=== PATIENT | female | born 1995 | race Caucasian/White ===

== ENCOUNTER 2023-08-11 17:00 | Emergency (ER) | payer MEDICAID ==
[~2023-08-11] VITALS: Ht 162.6 cm; Wt 108.9 kg
[2023-08-11 17:29] VITALS: BP 129/88; TEMP 98.4
[2023-08-11] MEDS: ACETAMINOPHEN ES 500 MG TABLET PO ONE (18:30)
[2023-08-11] MEDS ORDERED: TRIA80OI TP (18:52)
[2023-08-11 18:57] VITALS: O2SAT 97
== END 2023-08-11 18:58 | disposition home or self-care (01) ==
LOC: ER 17:12
DX: S92.524A Nondisplaced fracture of middle phalanx of right lesser toe(s), initial encounter for closed fracture (principal); L30.9 Dermatitis, unspecified; W22.8XXA Striking against or struck by other objects, initial encounter; Y93.89 Activity, other specified; Y92.89 Other specified places as the place of occurrence of the external cause; Y99.8 Other external cause status
CPT/HCPCS: 73660-TC